=== PATIENT | male | born 2000 | race Hispanic/Latino ===

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

== ENCOUNTER 2023-11-26 19:09 | Emergency (ER) | payer SELFPAY ==
[2023-11-26] MEDS ORDERED: diphenhydrAMINE 50 MG/ML VIAL ONE (19:25)
[2023-11-26] MEDS ORDERED: methylPREDNISolone Sod Succ/PF 125 MG/2 ML VIAL ONE (19:25)
[2023-11-26] MEDS ORDERED: Famotidine/PF 20 mg/2ml Vial ONE (19:26)
== END 2023-11-26 21:09 | disposition home or self-care (01) ==
LOC: NAV ERS 19:09
DX: L50.9 Urticaria, unspecified (principal)
CPT/HCPCS: 96374; 96375; J1200; J2919; J3490